=== PATIENT | female | born 1960 | race Caucasian/White ===

== ENCOUNTER 2024-01-13 06:07 | Day surgery (SDC) | payer BC ==
[2024-01-08 11:08] LABS: Basophils # (auto) 0 10 ^3/uL (0-0.2); Basophils % (auto) 0.6 % (0.0-2.0); Eosinophils # (auto) 0.2 10 ^3/uL (0-0.8); Eosinophils % (auto) 2.9 % (0.0-7.0); Hematocrit 41.1 % (36.0-46.0); Hemoglobin 14.1 g/dL (12.2-16.2); Lymphocytes # (auto) 1.2 10 ^3/uL (0.4-5.4); Lymphocytes % (auto) 19.7 % (10.0-50.0); Mean Corpuscular Hemoglobin 31.1 pg (28.0-32.0); Mean Corpuscular Hgb Conc. 34.3 g/dL (32.0-36.0); Mean Corpuscular Volume 90.6 fL (80.0-100.0); Monocytes # (auto) 0.5 10 ^3/uL (0-1.3); Monocytes % (auto) 8.2 % (0.0-12.0); Neutrophils # (auto) 4.2 10 ^3/uL (1.6-8.6); Neutrophils % (auto) 68.6 % (37.0-80.0); Nucleated Red Blood Cells % 0.2 %; Platelet Count (auto) 201 10^3/uL (140-450); Red Blood Cells 4.53 10^6/uL (4.0-5.20); Red Cell Distribution Width 14.1 % (11.8-14.3); White Blood Cell 6.1 10^3/uL (4.4-10.8)
[2024-01-08 11:18] LABS: INR 1.02 (0.9-1.15); Partial Thromboplastin Time 26.9 SEC (24.5-34.5); Prothrombin Time 10.8 sec (9.3-11.8)
[2024-01-08 11:19] LABS: Alanine Aminotransferase 32 U/L (7-40); Albumin 4.7 g/dL (3.2-4.8); Alkaline Phosphatase 96 U/L (46-116); Anion Gap 4 (5-15); Aspartate Aminotransferase 16 U/L (13-40); BUN/Creatinine Ratio 25.8 (10.0-20.0); Blood Urea Nitrogen 17 mg/dL (9-23); Calcium 10.4 mg/dL (8.7-10.4); Carbon Dioxide 30 mmol/L (20-31); Chloride 107 mmol/L (98-107); Glucose 80 mg/dL (74-106); Potassium 4.4 mmol/L (3.5-5.1); Sodium 141 mmol/L (136-145)
[2024-01-08 11:20] LABS: Bilirubin, Total 0.6 mg/dL (0.2-1.0); Total Protein 7.2 g/dL (5.7-8.2)
[2024-01-08 11:23] LABS: Urine Bacteria FEW /hpf (None Seen); Urine Blood Negative /uL (Negative); Urine Clarity Clear (Clear); Urine Color Yellow (Yellow); Urine Protein, UAD Negative (Negative); Urine Specific Gravity 1.022 (1.001-1.035); Urine Urobilinogen Normal (Negative); Urine WBC 1 /hpf (0 - 5); Urine pH 6.5 (5.0-9.0)
[~2024-01-13] VITALS: Ht 170.2 cm; Wt 96.2 kg
[~2024-01-13 06:07] MED LIST: ATOR20TA PO
[2024-01-13] MEDS ORDERED: GABAPENTIN 300 MG CAP PO ONE (06:45)
[2024-01-13] MEDS ORDERED: ceFAZolin 2 GM/D5W100ml 100 ML IV ONE (06:45)
[2024-01-13] MEDS ORDERED: BACITRACIN TOP OINT 1 UD PKG TOP ONE (06:46)
[2024-01-13] MEDS ORDERED: BUPIVACAINE HCL 50 ML ONE (06:46)
[2024-01-13] MEDS ORDERED: KETAMINE 50mg/ML 1ml syringe ONE (06:55)
[2024-01-13] MEDS ORDERED: PROPOFOL 10 MG/ML 20 ML IV ONE ×5 (06:55→08:38)
[2024-01-13] MEDS ORDERED: GLYCOPYRROLATE 0.2 MG/ML 1ML VIAL ONE (06:55)
[2024-01-13] MEDS ORDERED: KETOROLAC TROMETH 30 MG/ML 1ML VIAL ONE (06:56)
[2024-01-13] MEDS ORDERED: LIDOCAINE 2% (LOCAL ANESTH.) PF 5ml SDV ONE (06:56)
[2024-01-13] MEDS ORDERED: DexAMETHasone SOD PHOS 10MG/1ML VIAL INJ ONE (06:56)
[2024-01-13] MEDS ORDERED: ONDANSETRON HCL 4 MG/2 ML VIAL ONE (06:56)
[2024-01-13] MEDS ORDERED: LIDOCAINE 1% INJ PF 5ML AMP ONE (06:56)
[2024-01-13] MEDS ORDERED: CELECOXIB 100 MG CAP PO ONE (07:00)
[2024-01-13] MEDS ORDERED: ACETAMINOPHEN IV 1000 MG/100ML (10MG/ML) IV ONE (07:00)
[2024-01-13] MEDS ORDERED: ESMOLOL HCL 10 ML IV ONE (07:29)
[2024-01-13] MEDS: BUPIVACAINE 0.5% INJ 50ML VIAL IJ ONE (07:30)
[2024-01-13] MEDS ORDERED: fentaNYL CITRATE 100 MCG/2 ML VL ONE (07:36)
[2024-01-13] MEDS: ceFAZolin 1GM VL ONE (07:46)
[2024-01-13] MEDS ORDERED: ceFAZolin 1GM VL ONE (08:30)
[2024-01-13 08:58] VITALS: PULSE 71; RESP 19; TEMP 98.1; O2SAT 98
--- NOTE | 2024-01-13 08:59 | DVH ---
CLINICAL INDICATION: SURGERY TECHNIQUE: XY L FOOT 3 VIEW XRAY, frontal, lateral and oblique views. Comparison: None FINDINGS/IMPRESSION: No evidence of fracture. There is pinning of the 1st metatarsophalangeal joint. Soft tissue swelling in the 1st webspace. No cortical destruction. 1st metatarsophalangeal joint space narrowing. Joint spaces are otherwise maintained. The alignment is anatomical.
--- NOTE | 2024-01-13 09:07 | DVHOP2 ---
Operative Report - 2 Report Details Date: 01/13/24 Preop Diagnosis: Painful hallux limitus/rigidus left 1st metatarsophalangeal joint Painful hammertoe deformity non reducible in nature 2nd 3rd 4th and 5th left toes Postop Diagnosis: The same with significant degenerative joint disease as well as cartilaginous erosions, eburnation, and osteophytic lipping noted throughout the left 1st metatarsophalangeal joint Surgeon: Elias Clay, RHIANNON, MHA, MS, DABMSP Program Lead: None Anesthesiologist: Avni Parikh CRNA Anesthesia: Mac Consent: The patient was informed of the risks and benefits of the procedure. These include but are not limited to complications of anesthesia, postoperative infection, incomplete relief of symptoms, recurrence of symptoms, damage to blood vessels, nerves and tendons, deep venous thrombosis, pulmonary embolism and possible need for repeat surgery in the future. The patient is fully aware of all the possible risks and complications from the proposed surgical procedure ranging from infection recurrence have not operated again from any unforeseen conditions amputation of the left great toe should it become necessary or the bone infected. The removal of internal hardware fixation should it become painful for any reason as well. Alternative methods of treatment completed dis cussed with the patient in detail. Surgery was opted. All questions were answered to patient's satisfaction. Complications: None Estimated Blood Loss: Less than 3 cc Name of Procedure Performed Fusion of the left 1st metatarsophalangeal joint Arthroplasty of the 2nd 3rd 4th and 5th left toes Procedure Details Procedure Details: The patient was brought to the operating room and placed on the operating table in the supine position. After MAC anesthesia was achieved the left foot and leg was prepped and draped in the proper aseptic manner by which time a thigh tourniquet was applied and inflated to 300 mm Hg pressure after appropriate elevation and exsanguination utilizing an Esmarch. At this time approximately 30 cc of 0.5% Marcaine plain was injected in local infiltration as well as Landis block fashion. This was done without incident. Attention was now directed to procedure 1. Procedure 1: Fusion of the left 1st metatarsophalangeal joint: A curvilinear incision was placed on the dorsal aspect of the left 1st m etatarsophalangeal joint. The incision was carried deep by means of sharp and blunt dissection with care being taken to preserve all underlying vital structures all bleeders were bovied or ligated as necessary. The capsule was identified and incised linearly reflecting the 1st metatarsophalangeal joint of the left foot. At this time we noted significant amount of cartilaginous e rosions to the head of the left 1st metatarsal as well as the base of the proximal phalanx eburnation, osteophytic lipping, and significant degenerative joint disease was noted in the left 1st MPJ. Utilizing a power saw the hypertrophied medial eminence was resected and sent to pathology as a specimen. Utilizing a bone rongeur all osteophytes were resected and also sent to melva mulligan as specimen. The head and base of the left 1st MPJ was slightly shaved down to create roughness in preparation for the fusion this was done without incident as well. At this time all areas were rasped smooth no rough edges had remained. Area was flushed with copious amounts of Ancef irrigant was aspirated no debris was noted. At this time utilizing [employer] instrumentation we used 23.0 x 30 cross screws which were implanted in the left 1st MPJ without incident. Intraoperative x-rays confirmed proper positioning and alignment. At this time your utilizing a low-profile straight four hole titanium plate which was placed dorsally and it was anchored in place with 3.0 x 10 mm screws x2, 3.0 x 12 mm x1, and a cortical nonlocking screw 3.0 x 14 mm x 1. Intraoperative x-rays confirmed proper alignment and positioning. The left hallux was noted to be in neutral position in a nice anatomic position as well. It is important to note that the plate and screws were placed in Ancef irrigant for approximately 5 minutes prior to implantation. Area was once again flushed with copious amount of Ancef irrigant was aspirated no debris was noted. The capsule was reanastomosed utilizing 3-0 Vicryl suture, subcuticular cyst with 4-0 Vicryl suture, and skin with 4-0 nylon suture. Attention was now directed to procedure 2. Procedure 2: Arthroplasty of the 2nd, 3rd, 4th, and 5th left toes: Two semi elliptical incisions were placed on dorsal aspect of the 2nd 3rd 4th and 5th left toes incision was carried deep by means of sharp and blunt dissection with care being taken to preserve all underlying vital structures, all bleeders were bovied or ligated as necessary. At this time the extensor tendon was identified and transected transversely and reflected proximally exposing the head of the proximal phalanx of the 2nd 3rd 4th and 5th left toes. Utilizing number 64 blade, the medial and lateral collateral ligaments of the affected toes were resected without incident. Utilizing a small power saw, the head of the proximal phalanx of the 2nd 3rd 4th and 5th left toes were resected and also sent to pathology as a specimen. All areas were rasped smooth, no rough edges that remained. Area was flushed copious amounts of Ancef irrigant was aspirated no debris was noted. The extensor tendons were reanastomosed utilizing 4-0 Vicryl suture, subcuticular cyst with 4-0 Vicryl suture, and skin with 4-0 nylon suture. Upon loading of the forefoot it was noted that all digits were in rectus anatomic position. Surgical dressings consisted of bacitracin ointment to all toes Xeroform, 4x4s Kerlix and Jaylon bandage to yield a mildly compressive type bandage. The thigh tourniquet was released and immediate normal reactive hyperemia returned to all digits with good digital perfusion present. There were no intraoperative complications, the patient left the operating room to recovery room in stable condition. It is important to note that the patient was prophylaxed with 2 g of IV Ancef prior to surgical intervention. Patient has postoperative medications and follow visit to my office at home as well. Patient given strict instructions to ambulate in the cam walker with air only and not one single step without. Specimen: BONE Condition Good Disposition Home ELIAS CLAY DPM Jan 13, 2024 09:07
[2024-01-13] MEDS ORDERED: FLUMAZENIL 0.1 MG/ML INJ 10ML MDV IV PRN (09:15)
[2024-01-13] MEDS ORDERED: HYDROmorphone HCL 2 MG/ML VL/or syr IV PRN (09:15)
[2024-01-13] MEDS ORDERED: hydrALAZINE HCL 20 MG/ML VL IV PRN (09:15)
[2024-01-13] MEDS ORDERED: oxyCODONE HCL 5MG TAB PO PRN (09:15)
[2024-01-13] MEDS ORDERED: ePHEDrine SULFATE 50 MG/ML AMP IV PRN (09:15)
[2024-01-13] MEDS ORDERED: NALOXONE HCL 0.4 MG/ML VIAL IV PRN (09:15)
[2024-01-13] MEDS ORDERED: ONDANSETRON HCL 4 MG/2 ML VIAL IV PRN (09:15)
[2024-01-13] MEDS ORDERED: fentaNYL CITRATE 100 MCG/2 ML VL IV PRN (09:15)
[2024-01-13 09:43] VITALS: BP 169/73; PULSE 64; RESP 10; O2SAT 96
[2024-01-14] MEDS ORDERED: BUPIVACAINE W/ EPINEPH 0.5% INJ 50ML MDV IJ ONE (07:15)
[2024-01-14] MEDS ORDERED: EPINEPHrine HCL 1 MG/1 ML AMP ONE (07:15)
== END 2024-01-13 10:00 | disposition home or self-care (01) ==
LOC: SUR 06:07
PROVIDERS: ATTEND Podiatrist Foot & Ankle Surgery
DX: M20.5X2 Other deformities of toe(s) (acquired), left foot (principal); M20.42 Other hammer toe(s) (acquired), left foot; M19.072 Primary osteoarthritis, left ankle and foot; F17.210 Nicotine dependence, cigarettes, uncomplicated; E66.9 Obesity, unspecified; Z68.33 Body mass index [BMI] 33.0-33.9, adult; Z79.899 Other long term (current) drug therapy; Z90.710 Acquired absence of both cervix and uterus; Z88.8 Allergy status to other drugs, medicaments and biological substances
CPT/HCPCS: 28285; 28750; 36415; 73630; 80053; 81001; 85025; 85610; 85730; 88305; 88311; 88342; C1713; C1769; J0690; J1100; J1885; J2003; J2405; J2704; J3010; J3490; J0171

== ENCOUNTER 2024-02-24 06:07 | Day surgery (SDC) | payer BC ==
[2024-02-22 10:22] LABS: Basophils # (auto) 0.1 10 ^3/uL (0-0.2); Basophils % (auto) 0.7 % (0.0-2.0); Eosinophils # (auto) 0.2 10 ^3/uL (0-0.8); Eosinophils % (auto) 1.9 % (0.0-7.0); Hemoglobin 14.1 g/dL (12.2-16.2); Lymphocytes # (auto) 1.5 10 ^3/uL (0.4-5.4); Lymphocytes % (auto) 16.1 % (10.0-50.0); Mean Corpuscular Hemoglobin 31.1 pg (28.0-32.0); Mean Corpuscular Hgb Conc. 34.4 g/dL (32.0-36.0); Mean Corpuscular Volume 90.5 fL (80.0-100.0); Monocytes # (auto) 0.6 10 ^3/uL (0-1.3); Neutrophils # (auto) 6.9 10 ^3/uL (1.6-8.6); Neutrophils % (auto) 75.3 % (37.0-80.0); Nucleated Red Blood Cells % 0.1 %; Platelet Count (auto) 216 10^3/uL (140-450); Red Blood Cells 4.53 10^6/uL (4.0-5.20); Red Cell Distribution Width 13.9 % (11.8-14.3); White Blood Cell 9.1 10^3/uL (4.4-10.8)
[2024-02-22 10:41] LABS: INR 1.01 (0.9-1.15); Partial Thromboplastin Time 27.8 SEC (24.5-34.5); Prothrombin Time 10.7 sec (9.3-11.8)
[2024-02-22 11:03] LABS: Alanine Aminotransferase 32 U/L (7-40); Albumin 4.6 g/dL (3.2-4.8); Alkaline Phosphatase 113 U/L (46-116); Anion Gap 7 (5-15); Aspartate Aminotransferase 12 U/L (13-40); BUN/Creatinine Ratio 17.1 (10.0-20.0); Bilirubin, Total 0.6 mg/dL (0.2-1.0); Blood Urea Nitrogen 12 mg/dL (9-23); Calcium 10.5 mg/dL (8.7-10.4); Carbon Dioxide 29 mmol/L (20-31); Chloride 105 mmol/L (98-107); Glucose 76 mg/dL (74-106); Potassium 4.2 mmol/L (3.5-5.1); Sodium 141 mmol/L (136-145); Total Protein 7.4 g/dL (5.7-8.2)
[~2024-02-24] VITALS: Ht 170.2 cm; Wt 96.2 kg
[2024-02-24] MEDS ORDERED: ROCURONIUM 10MG/ML 10ML VIAL IV ONE (06:08)
[2024-02-24] MEDS ORDERED: ceFAZolin 2 GM/D5W100ml 100 ML IV ONE (06:21)
[2024-02-24] MEDS ORDERED: ceFAZolin 1GM VL ONE (06:39)
[2024-02-24] MEDS ORDERED: BACITRACIN TOP OINT 1 UD PKG TOP ONE (06:39)
[2024-02-24] MEDS ORDERED: MIDAZOLAM HCL 2MG/2ML 2ml VIAL (1mg/ml) ONE (06:51)
[2024-02-24] MEDS ORDERED: fentaNYL CITRATE 100 MCG/2 ML VL ONE (06:51)
[2024-02-24] MEDS ORDERED: MEPERIDINE HCL (50 MG/ML) 1 ML VIAL ONE (06:51)
[2024-02-24] MEDS ORDERED: ONDANSETRON HCL 4 MG/2 ML VIAL ONE (06:52)
[2024-02-24] MEDS ORDERED: PROPOFOL 10 MG/ML 20 ML IV ONE (06:52)
[2024-02-24] MEDS ORDERED: LIDOCAINE HCL 2% TOP JELLY 5ML TOP ONE (06:52)
[2024-02-24] MEDS ORDERED: LIDOCAINE 1% INJ PF 5ML AMP ONE (06:52)
[2024-02-24] MEDS ORDERED: SODIUM CHLORIDE LOCK 10 ML ONE (06:52)
[2024-02-24] MEDS ORDERED: MORPHINE SULFATE INJ 2 MG/ml SYRG IV PRN (07:15)
[2024-02-24] MEDS ORDERED: HYDROmorphone HCL 2 MG/ML VL/or syr IV PRN (07:15)
[2024-02-24] MEDS ORDERED: KETOROLAC TROMETH 30 MG/ML 1ML VIAL IV ONE (07:15)
[2024-02-24] MEDS ORDERED: fentaNYL CITRATE 100 MCG/2 ML VL IV PRN (07:15)
[2024-02-24] MEDS ORDERED: METOCLOPRAMIDE HCL 5MG/ml INJ 2ml VIAL IV ONE (07:15)
[2024-02-24] MEDS ORDERED: ROPIVACAINE 0.5% (5MG/ML) 20ML AMPULE IJ ONE (07:32)
[2024-02-24] MEDS: ROPIVACAINE 0.5% (5MG/ML) 20ML AMPULE IJ ONE (08:03)
[2024-02-24 09:01] VITALS: PULSE 68; RESP 15; O2SAT 96
--- NOTE | 2024-02-24 09:08 | DVHOP2 ---
Operative Report - 2 Report Details Date: 02/24/24 Preop Diagnosis: Painful hallux limitus rigidus with osteophytic lipping right 1st MPJ Painful hammertoe deformity non reducible in nature 2nd 3rd 4th and 5th right toes Postop Diagnosis: The same with severe degenerative joint disease osteophytic lipping cartilaginous erosions and eburnation noted with osteopenia. Surgeon: Elias Clay, ARABELLAM, MHA, MS, DABMSP Information Security Specialist: None Anesthesiologist: Dr. Aj MD Anesthesia: General Consent: The patient was informed of the risks and benefits of the procedure. These include but are not limited to complications of anesthesia, postoperative infection, incomplete relief of symptoms, recurrence of symptoms, damage to blood vessels, nerves and tendons, deep venous thrombosis, pulmonary embolism and possible need for repeat surgery in the future. The patient is fully aware of all the possible risks and complications from the proposed surgical procedure ranging from infection, recurrence, have an operated again from any unforeseen conditions, possibility of removal of the internal hardware fixation should it become necessary. Alternative methods completed discussed with the patient in detail surgery was opted. All questions and concerns were answered to patient's satisfaction. Name of Procedure Performed Fusion right 1st metatarsophalangeal joint: Arthroplasty 2nd, 3rd, 4th, and 5th right toes: Procedure Details Procedure Details: The patient was brought to the operating room placed on the operating table in the supine position. After general anesthesia was achieved the right foot and leg were prepped and draped in the proper aseptic manner which time a thigh tourniquet was applied and inflated to 250 mm Hg pressure after appropriate elevation and exsanguination utilizing an Esmarch. Attention was now directed to procedure 1. Procedure 1. Fusion of the right 1st metatarsophalangeal joint: A dorsomedial incision was placed in the right 1st MPJ the incision was carried deep by means of sharp and blunt dissection with care being taken to preserve all underlying vital structures, all bleeders were bovied or ligated as necessary. The capsule was identified transected linearly with reflecting the right 1st MPJ. It is at this point we encountered significant amount of cartilaginous erosions eburnation as well as osteophytic lipping throughout the right 1st metatarsophalangeal joint. At this point, the the hypertrophic medial eminence was resected with a power saw and sent to pathology as a specimen. Area was rasped smooth and the rough edges had remained. At this time an intra- articular capsulotomy and an adductor release was performed without incident. At this point utilizing a power saw the cartilaginous areas of the base of the proximal phalanx and the head of the right 1st metatarsal were resected and areas were roughed up in order to create a good bone to bone apposition. This was done without incident. All osteophytes were resected and also saw pathology specimen. The area was irrigated with 1000 cc of normal saline 1 g of Ancef was aspirated no debris was noted. At this time, utilizing [employer] instrumentation a 3.028 mm as well as a 3.026 mm both cannulated screws were used via a guidewire to fixate the right 1st MPJ without incident. However, this was somewhat a difficult procedure since the patient had significant osteopenia and we tried to place the screws in the area of most bone stock in order to create good [id number] apposition and fixation. Though this was not text book cross screw fixation due to the significant osteopenia. The fixation was performed without incident with excellent [id number] apposition. The right great toe was inspected and put through its range of motion however to the significant fixation no range of motion was noted which is the desired result. It is important to note that intraoperative x-rays confirmed proper alignment positioning and good bone to bone apposition. Area was once again flushed with copious amount of of Ancef irrigant was aspirated no debris was noted. The capsule was closed with 3-0 Vicryl suture, subcuticular cyst 4-0 Vicryl suture, and skin with 4-0 nylon suture. The toe was noted to be in rectus anatomic position. Attention was now directed to procedure 2. Procedure 2. Arthroplasty of the 2nd, 3rd, 4th, and 5th right toes: Two semi elliptical incisions were placed on the dorsal aspect of the PIPJ of the 2nd 3rd 4th and 5th right toes. The incision was carried deep by means of sharp and blunt dissection with care being taken to preserve all underlying vital structures. All bleeders were bovied or ligated as necessary. At this time the extensor tendon was identified transected transversely reflecting the head of the proximal phalanx of the 2nd 3rd 4th and 5th right toes. Utilizing a number 64 blade, the medial and lateral collateral ligaments of all affected toes was resected without incident. Utilizing a small power saw the head of the proximal phalanx of the 2nd 3rd 4th and 5th toes were resected and sent to pathology as a specimen. All areas were rasped smooth, no rough edges that remained. Area was flushed with copious amounts of Ancef irrigant was aspirated no debris was noted. At this time the extensor tendons were 2nd 3rd 4th and 5th right toes were reanastomosed utilizing 4-0 Vicryl suture subcuticular stitch with 4-0 Vicryl suture skin with 4-0 nylon suture. The 2nd 3rd 4th and 5th toes were noted to be in excellent anatomic position. Prior to surgical dressing approximately 30 cc of 0.5% ropivacaine plain was injected in a Landis block and V block fashion to all surgical areas without incident. Surgical dressing con sisted of bacitracin ointment Xeroform 4x4s Kerlix and Jaylon bandage to yield a mildly compressive type bandage. The thigh tourniquet was released after 1 hour of surgery and there immediate normoactive hyperemia returned to all digits with good digital perfusion present. The arthroplasties were performed wet. It is important to note that the patient was prophylaxed with 2 g of IV Ancef prior to surgery. Patient was given strict instructions to ambulate in the cam walker with air not one single step without. Patient has postop medications follow visit to my office at home. Specimen: BONE Condition Good Disposition Home ELIAS CLAY DPM Feb 24, 2024 09:08
--- NOTE | 2024-02-24 09:12 | DVH ---
CLINICAL INDICATION: R 1ST MPJ ARHTROPLASTY W/POSS K-WIRE FIXATION 2,3,4,5 TECHNIQUE: XY R FOOT 2 VIEW XRAY Comparison: XY L FOOT 3 VIEW XRAY on DOS: 01/13/24 FINDINGS/IMPRESSION: : There is no evidence of acute fracture or dislocation. Expected postoperative changes associated with the fixation of the 1st MTP.
[2024-02-24 09:15] VITALS: TEMP 98.2
[2024-02-24] MEDS: HYDROmorphone HCL 2 MG/ML VL/or syr IV PRN (09:54)
[2024-02-24 10:00] VITALS: BP 166/82; PULSE 67; RESP 11; O2SAT 95
== END 2024-02-24 10:25 | disposition home or self-care (01) ==
LOC: SUR 06:07
PROVIDERS: ATTEND Podiatrist Foot & Ankle Surgery
DX: M20.5X1 Other deformities of toe(s) (acquired), right foot (principal); M20.41 Other hammer toe(s) (acquired), right foot; M20.21 Hallux rigidus, right foot; M25.774 Osteophyte, right foot; M19.071 Primary osteoarthritis, right ankle and foot; M21.611 Bunion of right foot; E78.5 Hyperlipidemia, unspecified; E66.9 Obesity, unspecified; Z68.38 Body mass index [BMI] 38.0-38.9, adult; Z79.899 Other long term (current) drug therapy; Z90.710 Acquired absence of both cervix and uterus; Z88.1 Allergy status to other antibiotic agents
CPT/HCPCS: 28285; 28750; 36415; 73620; 80053; 85025; 85610; 85730; 88305; 88311; C1713; J0330; J0690; J1171; J2175; J2250; J2405; J2704; J2795; J3010